=== PATIENT | male | born 1965 | race Caucasian/White ===

== ENCOUNTER 2023-01-01 08:40 | Outpatient (OUT) | payer OTHER, SELFPAY ==
--- NOTE | 2023-01-01 08:53 | ECG_ITS ---
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
--- NOTE | 2023-01-01 09:27 | P.GSHP_ITS ---
History of Present Illness History of Present Illness Chief complaint: Right Hallux Rigidus Narrative: Patient presents for preadmission testing. The patient states he has a long history of bilateral foot pain, right greater than left. The patient states he walks on concrete for long hours at work. He states most of his pain is in the area of his great toe. He states the pain is worse after standing for long periods of time and better with rest. He has tried insoles and meloxicam with no relief of his symptoms. He denies numbness, tingling, weakness, or any other complaints. Review of Systems ROS Narrative REVIEW OF SYSTEMS: Negative except as stated in HPI, ten or more systems reviewed. Constitutional: No fever , chills, weakness ENT: No sore throat or epistaxis Cardiovascular: No edema, chest pain, palpitations, or activity intolerance Respiratory: No shortness of breath, cough, or wheezing Gastrointestinal: No abdominal pain, constipation, diarrhea, or vomiting Genitourinary: No dysuria or hematuria Neurological: No numbness, tingling, weakness, or headache Psychiatric: No mood changes [facility] Medical History (Updated 01/01/23 @ 09:18 by Kristen Christopher NP) Surgical History (Updated 01/01/23 @ 09:18 by Kristen Christopher NP) Family History (Updated 01/01/23 @ 09:18 by Kristen Christopher NP) Other Family history of hypertension Family history of uterine cancer Social History (Updated 01/01/23 @ 09:06 by Kristen Christopher NP) Within the past year, how often did you have a drink containing alcohol: never Score interpretation: A score less than 4 is consistent with normal alcohol consumption. 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 Highest level of school completed/degree received: high school graduate Meds Home Medications and Allergies Home Medications Medication Instructions Recorded Confirmed Type simvastatin 40 mg tablet 40 mg PO QDAY 01/01/23 01/01/23 History Allergies Allergy/AdvReac Type Severity Reaction Status Date / Time No Known Drug Allergies Allergy Verified 01/01/23 09:05 Exam Narrative Exam Narrative: Constitutional: Awake, alert, comfortable, well-appearing, nontoxic, interactive, vital signs as charted Head: Normocephalic, atraumatic Neck: Supple, normal appearance, normal range of motion, no meningeal signs, no lymphadenopathy Respiratory: No respiratory distress, breath sounds clear Cardiovascular: Regular rate and rhythm, strong and regular heart tones Musculoskeletal: Right foot: Pain with palpation over the right 1st MPJ, deformity noted, limited range of motion, good capillary refill, sensation i ntact Skin: No rashes or induration, no lesions, only visible skin inspected Neuro: No neurological deficits, normal sensation Psychiatric: Oriented ?3, normal affect Assessment and Plan Assessment and Plan (1) Hallux rigidus: Plan Right 1st metatarsal phalangeal joint fusion with bone graft as needed scheduled with Dr. Bain 01/13/2023.
[2023-01-01 11:43] LABS: Anion Gap 13.1; BUN Creatinine Ratio 16.2; Calcium 8.6 mg/dL (8.5-10.1); Carbon Dioxide 28.2 mmol/L (21.0-32.0); Chloride 109 mmol/L (98-107); Estimated GFR (African America >60 (>=60); Estimated GFR (Non-African Ame >60 (>=60); Glucose 98 mg/dL (74-106); Potassium 4.3 mmol/L (3.5-5.1); Sodium 146 mmol/L (136-145)
== END 2023-01-01 08:41 | disposition home or self-care (01) ==
LOC: PST 08:42
PROVIDERS: PCP Family Medicine; Visit Provider Podiatrist Foot & Ankle Surgery
DX: Z01.810 Encounter for preprocedural cardiovascular examination (principal); Z01.812 Encounter for preprocedural laboratory examination; M20.21 Hallux rigidus, right foot; I10 Essential (primary) hypertension
CPT/HCPCS: 36415; 80048; 93005; G0463

== ENCOUNTER 2023-01-13 07:04 | Day surgery (SDC) | payer OTHER, SELFPAY ==
[2023-01-01 09:25] VITALS: BP 133/82; PULSE 79; RESP 18; TEMP 36.3; O2SAT 97; BMI 32.1
[2023-01-13] VITALS (11 sets, daily range): BP systolic 122–154; BP diastolic 77–93; PULSE 61–77; RESP 10–19; TEMP 36–36.1; O2SAT 95–97; BMI 31.9
--- NOTE | 2023-01-13 | XR_ITS ---
[address] [address] Patient Name: DARVIN LIEBERMAN MRN: [id number] date: 1965 Sex: M Assigned Patient Location: [facility] Current Patient Location: Accession/Order Number: [id number] Exam Date: 01/13/2023 08:48 Report Date: 01/13/2023 14:07 At the request of: KAMLA SORIANO Procedure: XR foot RT 2V XR foot RT 2V TECHNIQUE : Intraoperative fluoroscopy was performed without a radiologist present. HISTORY: FUSION Comparison: Bilateral foot x-rays 08/14/2022. FINDINGS: Fluoroscopy was performed without a radiologist present. Spot images demonstrate fusion across the first metatarsophalangeal joint. Cumulative dose: 1.55 mGy. Total fluoroscopic time: 81.9 seconds. XR/XR foot RT 2V IMPRESSION: Intraprocedural/intraoperative fluoroscopy was performed. Correlate with procedural note for additional information. Electronically authenticated by: ANDREW OSHEA Date: 01/13/2023 14:07
[2023-01-13 07:22] LABS: Basophils Percent Auto 0.5 % (0.2-2.0); Eosinophils Absolute Auto 0.3 10^3/uL (0.0-0.7); Eosinophils Percent Auto 4.2 % (0.9-7.0); Hematocrit 42.5 % (42.0-54.0); Hemoglobin 14.4 g/dL (14.0-18.0); Immature Granulocytes Abs Auto 0.01 10^3/uL (0.00-0.03); Immature Granulocytes Pct Auto 0.2 % (0.0-0.5); Lymphocytes Absolute Auto 1.7 10^3/uL (1.2-3.8); Lymphocytes Percent Auto 27.8 % (20.5-60.0); Mean Corpuscular HGB Conc 33.9 g/dL (29.9-35.2); Mean Corpuscular Volume 91.4 fL (80.0-94.0); Mean Platelet Volume 9.9 fL (9.5-13.5); Monocytes Absolute Auto 0.5 10^3/uL (0.3-0.8); Neutrophils Absolute Auto 3.7 10^3/uL (1.4-6.5); Neutrophils Percent Auto 59.3 % (43.0-75.0); Platelet Count 234 10^3/uL (150-450); Red Blood Count 4.65 10^6/uL (4.70-6.10); Red Cell Distribution Width 12.1 % (11.0-15.0); White Blood Count 6.2 10^3/uL (4.0-11.0)
[2023-01-13 07:26] LABS: Glucometer 101 mg/dL (74-106)
[2023-01-13] MEDS: LACTATED RINGER'S SOLUTION 1,000 ML 50 ML IV ×2 (07:45→10:50)
[2023-01-13] MEDS: CEFAZOLIN SODIUM/DEXTROSE,ISO 2 GM/50 ML PIGGYBACK IV (08:37)
[2023-01-13] MEDS: THROMBI-GEL SIZE 40 HEMOSTAT 1 EACH TOPICAL (09:41)
[2023-01-13 11:18] LABS: Glucometer 92 mg/dL (74-106)
--- NOTE | 2023-01-13 11:45 | XR_ITS ---
The [address] [address] Patient Name: DARVIN LIEBERMAN MRN: [id number] date: 1965 Sex: M Assigned Patient Location: [email or web address] Current Patient Location: [facility] [[email or web address]] Accession/Order Number: [id number] Exam Date: 01/13/2023 11:35 Report Date: 01/13/2023 14:44 At the request of: RAHAT LEIJA Procedure: XR foot RT min 3V STUDY: XR foot RT min 3V, [id number] HISTORY: postop xr pacu COMPARISON: Bilateral foot x-rays 08/14/2022 FINDINGS: Status post right first metatarsophalangeal joint fusion. The fusion hardware is intact. Alignment across the first MTP joint is near anatomic. No acute fracture or dislocation. There are expected postsurgical changes to the soft tissues surrounding the first MTP joint. Calcification at the Achilles insertion. XR/XR foot RT min 3V IMPRESSION: Expected appearance from the right first metatarsophalangeal joint fusion. Electronically authenticated by: ANDREW OSHEA Date: 01/13/2023 14:44
--- NOTE | 2023-01-13 13:17 | P.ORON_ITS ---
Brief Operative Note Date of procedure: 01/13/23 Pre-op diagnosis: right hallux rigidus Post-op diagnosis: same as pre-op Procedure: PROCEDURE(S) PERFORMED: 1. First metatarsal phalangeal joint fusion 2. [place] of distal tibial bone graft 3. Application of short leg splint 4. Intraoperative fluoroscopy examination *All procedures were performed on the RIGHT foot INTRAOPERATIVE FINDINGS: PROCEDURE IN DETAIL: Patient was identified in pre op and consent was reviewed. Correct side and site were identified and marked. Pre-op antibiotics were started. Patient was brought to OR suite and place on table in a supine position. General anesthesia was administered. A tourniquet was applied. Operative extremity was prepped and draped in usual sterile fashion. Formal time-out was performed and the foot/ankle were exsanguinated and tourniquet inflated. Incision created over dorsal aspect of the 1st MPJ. Bleeders coagulated. EHL protected throughout the procedure. Capsulotomy performed and McGlammry elevator inserted into 1st MPJ. Guide Pin place in 1st metatarsal head. Conical reamers used on 1st metatarsal head to remove cartilage and subchondral bone. Guide pin removed. Conical reamers used on proximal phalanx in a similar manner. 2.0 mm drill used to on each side of the joint. The site was irrigated. Distal Tibial Bone Graft: A 2 cm incision was created 2 cm proximal to the ankle joint and just medial to the tibialis anterior tendon. Combination sharp blunt dissection gained access to the distal tibial metaphysis and the periosteum was reflected carefully. An 8 mm bone harvester was drilled into the distal tibial metaphysis and 3 cc of cancellus autograft was obtained. Gelfoam was then packed into the harvest site and deep closure with absorbable suture was performed followed by closure with skin suture. Bone graft was then packed into the fusion site. A stab incision was placed on the medial aspect of the hallux and blunt dissection down to the proximal phalanx base was performed. A guide wire was then used to pin the MPJ in a rect us position under fluoroscopic guidance. Position was checked both on the table and under fluoroscopy. A saw was used to contour the dorsal aspect of the 1st metatarsal and proximal phalanx to accommodate plate fixation. A 3.[address] was [address] over the fusion site and temporarily fixed. Then towboat pilot holes were drilled for locking 3.5 mm screws which were measured and placed according to the manufactor's standard directions. Again position was checked under fluoroscopy as well as on the table. Temporary fixation was removed and additional screws were placed. A 3.5 mm cannulated headed screw was inserted over the previously placed guide wire accordingly. Again position of the great toe and hardware placement were checked on the table and under fluoroscopy. The surgical site was irrigated with copious amounts of sterile saline. The incision was then closed in layers. The tourniquet was deflated and a prompt hyperemic response was noted. A dry sterile dressing consisting of Xeroform on the incisions followed by 4 x 4 gauze, ABDs, and Kerlix were applied. Multiple layers of cast padding were then applied to ensure all bony prominences were well-padded. A plaster posterior splint was then applied which was held in place by Tacos wraps. Capillary refill time to all digits was evaluated and had appropriate response. 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 He attempted OTC anti-inflammatories and Tylenol, shoe modification and topical pain relievers without help. He presents my office medial discussed the risks and benefits associated with surgical and nonsurgical treatment options. Given the patient's daily pain and dysfunction he wished to proceed with surgical intervention I recommended right 1st metatarsal phalangeal joint fusion. All risks and benefits were discussed and all questions answered to satisfaction.
== END 2023-01-13 12:25 | disposition home or self-care (01) ==
PROVIDERS: Anesthesiology; PCP Family Medicine; Visit Provider Podiatrist Foot & Ankle Surgery
PROC: (CPT 20900; principal; 2023-01-13 08:20)
DX: M20.21 Hallux rigidus, right foot (principal); I10 Essential (primary) hypertension; Z87.891 Personal history of nicotine dependence; E78.00 Pure hypercholesterolemia, unspecified
CPT/HCPCS: 20900; 28750; 36415; 64445; 73620; 73630; 76000; 76942; 82948; 85025; C1713; J2704

== ENCOUNTER 2023-02-04 10:34 | Outpatient (OUT) | payer OTHER, SELFPAY ==
--- NOTE | 2023-02-04 | XR_ITS ---
The [address] [address] Patient Name: DARVIN LIEBERMAN MRN: [id number] date: 1965 Sex: M Assigned Patient Location: [facility] Current Patient Location: [facility] Accession/Order Number: [id number] Exam Date: 02/04/2023 10:48 Report Date: 02/04/2023 15:28 At the request of: SENA CABRERA Procedure: XR foot RT min 3V EXAM: XR foot RT min 3V HISTORY: RIGHT FOOT PAIN COMPARISON: 01/13/2023 TECHNIQUE: 3 views of the right foot were obtained. FINDINGS: The posterior mold has been removed. Postsurgical changes are again seen at the first metatarsophalangeal joint, with a dorsal plate, as well as multiple screws. The joint space remains visible. Soft tissue swelling is noted at the surgical site. There is no evidence of an acute fracture or dislocation. The joint space otherwise intact. An osteophyte arises from the insertion site of the Achilles tendon. XR/XR foot RT min 3V IMPRESSION: Postsurgical changes are noted at the first metatarsophalangeal joint, accompanied by hardware, as described. A small amount of osseous healing is present and the joint space remains visible. Soft tissue swelling is also noted at the site of surgery. There is no acute fracture or dislocation. Electronically authenticated by: KAMLA VALVERDE Date: 02/04/2023 15:28
== END 2023-02-04 10:35 | disposition home or self-care (01) ==
LOC: RAD 10:34
PROVIDERS: PCP Family Medicine; Visit Provider Physician Assistant
DX: M20.21 Hallux rigidus, right foot (principal)
CPT/HCPCS: 73630

== ENCOUNTER 2023-02-20 10:37 | Outpatient (OUT) | payer OTHER, SELFPAY ==
--- NOTE | 2023-02-20 | XR_ITS ---
The [address] [address] Patient Name: DARVIN LIEBERMAN MRN: [id number] date: 1965 Sex: M Assigned Patient Location: [facility] Current Patient Location: Accession/Order Number: [id number] Exam Date: 02/20/2023 10:45 Report Date: 02/21/2023 09:27 At the request of: SENA CABRERA Procedure: XR foot RT min 3V PROCEDURE: XR foot RT min 3V COMPARISON: None. HISTORY: RIGHT FOOT PAIN FINDINGS: BONES:Stable fusion the first metatarsal-phalangeal joint using a dorsal plate and multiple screws. No acute fracture, dislocation or mechanical failure. Enthesopathic spurring Achilles insertion of the calcaneus SOFT TISSUES:Negative. No visible soft tissue swelling. EFFUSION:None visible. OTHER: Negative. XR/XR foot RT min 3V IMPRESSION: Stable fusion first metatarsal-phalangeal joint Electronically authenticated by: NINA ALCANTARA Date: 02/21/2023 09:27
== END 2023-02-20 10:38 | disposition home or self-care (01) ==
LOC: RAD 10:37
PROVIDERS: PCP Family Medicine; Visit Provider Physician Assistant
DX: M79.671 Pain in right foot (principal); Z98.1 Arthrodesis status
CPT/HCPCS: 73630

== ENCOUNTER 2023-03-03 08:43 | Outpatient (OUT) | payer OTHER, SELFPAY ==
[2023-03-03 06:48] LABS: Basophils Percent Auto 0.6 % (0.2-2.0); Eosinophils Absolute Auto 0.3 10^3/uL (0.0-0.7); Eosinophils Percent Auto 4.9 % (0.9-7.0); Hematocrit 43.7 % (42.0-54.0); Hemoglobin 14.3 g/dL (14.0-18.0); Immature Granulocytes Abs Auto 0.01 10^3/uL (0.00-0.03); Immature Granulocytes Pct Auto 0.2 % (0.0-0.5); Lymphocytes Absolute Auto 1.5 10^3/uL (1.2-3.8); Lymphocytes Percent Auto 23.5 % (20.5-60.0); Mean Corpuscular HGB Conc 32.7 g/dL (29.9-35.2); Mean Corpuscular Hemoglobin 30.4 pg (25.9-34.0); Mean Corpuscular Volume 92.8 fL (80.0-94.0); Mean Platelet Volume 9.6 fL (9.5-13.5); Monocytes Absolute Auto 0.5 10^3/uL (0.3-0.8); Monocytes Percent Auto 7.7 % (1.7-12.0); Neutrophils Percent Auto 63.1 % (43.0-75.0); Platelet Count 240 10^3/uL (150-450); Red Blood Count 4.71 10^6/uL (4.70-6.10); Red Cell Distribution Width 12.4 % (11.0-15.0); White Blood Count 6.3 10^3/uL (4.0-11.0)
[2023-03-03 07:32] LABS: Estimated Average Glucose 108 mg/dL; Glycohemoglobin A1C 5.4 % (4.5-6.2)
[2023-03-03 07:50] LABS: Alanine Aminotransferase 45 U/L (16-63); Albumin Globulin Ratio 1.3; Albumin Level 3.8 g/dL (3.4-5.0); Alkaline Phosphatase 113 U/L (46-116); Anion Gap 13.1; Aspartate Amino Transferase 17 U/L (15-37); BUN Creatinine Ratio 14.1; Bilirubin Total 0.4 mg/dL (0.2-1.0); Calcium 8.6 mg/dL (8.5-10.1); Carbon Dioxide 30.8 mmol/L (21.0-32.0); Chloride 105 mmol/L (98-107); Chol HDL Ratio 3.7; Cholesterol 191 mg/dL (<=200); Estimated GFR (African America >60 (>=60); Estimated GFR (Non-African Ame >60 (>=60); Free T3 3.16 pg/mL (2.18-3.98); Globulin 2.9 g/dL; Glucose 92 mg/dL (74-106); HDL Cholesterol 51 mg/dL (40-60); Potassium 3.9 mmol/L (3.5-5.1); Sodium 145 mmol/L (136-145); Thyroid Stimulating Hormone 6.866 uIU/mL (0.358-3.740); Total Protein 6.7 g/dL (6.4-8.2); Triglycerides 125 mg/dL (<=150)
[2023-03-03 08:02] LABS: Prostate Specific Antigen Scrn 0.87 ng/mL (<=4.00)
[2023-03-04 11:09] LABS: Insulin 9.3 uIU/mL (2.6-24.9)
== END 2023-03-03 08:44 | disposition home or self-care (01) ==
LOC: LAB 03-04 08:43
PROVIDERS: PCP Family Medicine; Visit Provider Family Medicine
DX: Z00.00 Encounter for general adult medical examination without abnormal findings (principal)
CPT/HCPCS: 36415; 80053; 80061; 83036; 83525; 84436; 84443; 84481; 85025; G0103

== ENCOUNTER 2023-04-02 06:33 | Outpatient (OUT) | payer OTHER, SELFPAY ==
[2023-04-02 09:09] LABS: Free T4 0.66 ng/dL (0.76-1.46)
[2023-04-02 09:11] LABS: Thyroid Stimulating Hormone 8.104 uIU/mL (0.358-3.740)
== END 2023-04-02 06:34 | disposition home or self-care (01) ==
LOC: LAB 06:33
PROVIDERS: PCP Family Medicine; Visit Provider Family Medicine
DX: R94.6 Abnormal results of thyroid function studies (principal)
CPT/HCPCS: 36415; 84439; 84443

== ENCOUNTER 2023-04-03 10:41 | Outpatient (OUT) | payer OTHER, SELFPAY ==
--- NOTE | 2023-04-03 | XR_ITS ---
[place] [id number] Patient Name: DARVIN LIEBERMAN MRN: [id number] date: 1965 Sex: M Assigned Patient Location: [facility] Current Patient Location: Accession/Order Number: [id number] Exam Date: 04/03/2023 10:45 Report Date: 04/04/2023 09:06 At the request of: SENA CABRERA Procedure: XR foot RT min 3V PROCEDURE: XR foot RT min 3V COMPARISON: 02/20/2023 HISTORY: LEFT FOOT PAIN FINDINGS: BONES:No acute fracture or dislocation. Fusion the first metatarsal-phalangeal joint with a plate and multiple screws. No mechanical failure. Partial bony bridging of the joint. Enthesopathic spurring of the calcaneus. SOFT TISSUES:Soft tissue swelling medial forefoot EFFUSION:None visible. OTHER: Negative. XR/XR foot RT min 3V IMPRESSION: Stable first metatarsal-phalangeal joint fusion with no mechanical failure Electronically authenticated by: NINA ALCANTARA Date: 04/04/2023 09:06
== END 2023-04-03 10:42 | disposition home or self-care (01) ==
LOC: RAD 10:41
PROVIDERS: PCP Family Medicine; Visit Provider Physician Assistant
DX: M20.21 Hallux rigidus, right foot (principal)
CPT/HCPCS: 73630

== ENCOUNTER 2023-05-03 06:30 | Outpatient (OUT) | payer OTHER, SELFPAY ==
--- OUTSIDE RECORDS SUMMARY | 2023-05-03 06:31 | XMS_ITS | CCD ---
Author Name Unknown Address [address] [facility] [address] [place] [address] Organization [facility] Care Team Providers Care Educational Sign Language Interpreter Name Role Phone KALEIGH ., DR HICKMAN Primary Care Unavailable KAMLA SORIANO Attending Unavailable PRINCEANDER, KAMLA Wilburn Consulting Unavailable KAMLA SORIANO Admitting Unavailable ELIAS AGUIRRE Consulting Unavailable HOY ., DR HICKMAN Admitting Unavailable HOY ., DR HICKMAN Attending Unavailable HOY ., DR HICKMAN Consulting Unavailable HOY ., DR HICKMAN Primary Care Unavailable HOY ., DR HICKMAN Admitting Unavailable HOY ., DR HICKMAN Attending Unavailable HOY ., DR HICKMAN Consulting Unavailable HOY ., DR HICKMAN Primary Care Unavailable HOY ., DR HICKMAN Admitting Unavailable HOY ., DR HICKMAN Attending Unavailable HOY ., DR HICKMAN Primary Care Unavailable Problems Active Problems Problem Classification Problem Date Documented Date Episodic/Chronic Disorders of lipid metabolism (1 source) Pure hypercholesterolemia, unspecified; Translations: [PURE HYPERCHOLESTEROLEMIA UNSPEC] Onset: 2 Chronic Other connective tissue disease (4 sources) Pain in right foot; Translations: [PAIN IN RIGHT FOOT] Onset: 3 Episodic Other connective tissue disease (1 source) Pain in left foot; Translations: [PAIN IN LEFT FOOT] Onset: 3 Episodic Past or Other Problems Problem Classification Problem Date Documented Da te Episodic/Chronic Malaise and fatigue (1 source) Other fatigue; Translations: [OTHER FATIGUE] Onset: 03-23-2022 Episodic Other screening for suspected conditions (not mental disorders or infectious disease) (6 sources) Encounter for screening for malignant neoplasm of colon; Translations: [Encounter for screening for malignant neoplasm of prostate] Onset: 03-21-2022 Episodic Results Test Name Value Interpretation Reference Range Facility OCC BLD IMMUNO SCREENon 12-0 OCCULT BLOOD Negative Normal NEGATIVE [facility] Comment on above: Performed By: #### O BSCRN #### [facility] [address] [address] [address] Salud Abraham CBC AUTO DIFFon 03-18-2022 BASO # 0.1 103/ul Normal 0.0-0.1 [facility] Comment on above: Performed By: #### C BC #### [facility] [address] [place] [address] Dr. Salud Abraham Basophils/100 WBC (Bld) 0.8 % Normal 0.2-2.0 [facility] Comment on above: Performed By: #### C BC #### [facility] [address] [place] [address] Dr. Salud Abraham EO # 0.2 103/ul Normal 0.0-0.7 [facility] Comment on above: Performed By: #### C BC #### [facility] [address] [place] [address] Dr. Salud Abraham Eosinophils/100 WBC (Bld) 3.8 % Normal 0.9-7.0 [facility] Comment on above: Performed By: #### C BC #### [facility] [address] [place] [address] Dr. Salud Abraham Erythrocyte distribution width (RBC) [Ratio] 12.7 % Normal 11.0-15.0 [facility] Comment on above: Performed By: #### C BC #### [facility] [address] [place] [address] Dr. Salud Abraham Hematocrit (Bld) [Volume fraction] 44.8 % Normal 42.0-54.0 [facility] Comment on above: Performed By: #### C BC #### [facility] [address] [place] [address] Dr. Salud Abraham Hemoglobin (Bld) [Mass/Vol] 14.9 g/dL Normal 14.0-18.0 [facility] Comment on above: Performed By: #### C BC #### [facility] [address] [place] [address] Dr. Salud Abraham IG # 0.02 10e3/ul Normal 0.00-0.03 [facility] Comment on above: Performed By: #### C BC #### [facility] [address] [place] [address] Dr. Salud Abraham IG % 0.3 % Normal 0.0-0.5 [facility] Comment on above: Performed By: #### C BC #### [facility] [address] [place] [address] Dr. Salud Abraham LYMPH # 1.5 103/ul Normal 1.2-3.8 [facility] Comment on above: Performed By: #### C BC #### [facility] [address] [place] [address] Dr. Salud Abraham Lymphocytes/100 WBC (Bld) 24.0 % Normal 20.5-60.0 [facility] Comment on above: Performed By: #### C BC #### [facility] [address] [place] [address] Dr. Salud Abraham MANUAL DIFF REQ NO Normal [facility] Comment on above: Performed By: #### C BC #### [facility] [address] [place] [address] Dr. Salud Abraham MCH (RBC) [Entitic mass] 29.9 pg Normal 25.9-34.0 [facility] Comment on above: Performed By: #### C BC #### [facility] [address] [place] [address] Dr. Salud Abraham MCHC (RBC) [Mass/Vol] 33.3 g/dL Normal 29.9-35.2 [facility] Comment on above: Performed By: #### C BC #### [facility] [address] [place] [address] Dr. Salud Abraham MCV (RBC) [Entitic vol] 90.0 fL Normal 80.0-94.0 [facility] Comment on above: Performed By: #### C BC #### [facility] [address] [place] [address] Dr. Salud Abraham MONO # 0.5 103/ul Normal 0.3-0.8 [facility] Comment on above: Performed By: #### C BC #### [facility] [address] [place] [address] Dr. Salud Abraham Monocytes/100 WBC (Bld) 8.9 % Normal 1.7-12.0 [facility] Comment on above: Performed By: #### C BC #### [facility] [address] [place] [address] Dr. Salud Abraham NEUT # 3.8 103/ul Normal 1.4-6.5 [facility] Comment on above: Performed By: #### C BC #### [facility] [address] [place] [address] Dr. Salud Abraham Neutrophils/100 WBC (Bld) 62.2 % Normal 43.0-75.0 [facility] Comment on above: Performed By: #### C BC #### [facility] [address] [place] [address] Dr. Salud Abraham Platelet mean volume (Bld) [Entitic vol] 10.6 fL Normal 9.5-13.5 [facility] Comment on above: Performed By: #### C BC #### [facility] [address] [place] [address] Dr. Salud Abraham PLT 196 103/ul Normal 150-450 [facility] Comment on above: Performed By: #### C BC #### [facility] [address] [place] [address] Dr. Salud Abraham RBC 4.98 106/ul Normal 4.70-6.10 [facility] Comment on above: Performed By: #### C BC #### [facility] [address] [place] [address] Dr. Salud Abraham WBC 6.1 103/ul Normal 4.0-11.0 [facility] Comment on above: Performed By: #### C BC #### [facility] [address] [place] [address] Dr. Salud Abraham FREE T3on 03-18-2022 FREE T3 2.91 pg/mlL Normal 2.18-3.98 [facility] Comment on above: Performed By: #### T SH, CMP, T4, FT3, LIPID #### [facility] [address] [address] [address] Salud Abraham GLYCOHEMOGLOBIN A1Con 2021 ADA RECOMMENDATION SEE BELOW Normal [facility] Comment on above: Result Comment: ADA RECOMMENDED LIMIT 4.0 - 6.0 ADA THERAPEUTIC TARGET < 7.0 ACTION SUGGESTED > 7.0 Performed By: #### A 1C #### [facility] [address] [address] [address] Salud Abraham Glucose [Mass/Vol] 111 mg/dL Normal [facility] Comment on above: Performed By: #### A 1C #### [facility] [address] [address] [address] Salud Abraham HbA1c (Bld) [Mass fraction] 5.5 % Normal 4.5-6.2 [facility] Comment on above: Performed By: #### A 1C #### [facility] [address] [place] [address] Dr. Salud Abraham LIPID PROFILEon 03-18-2022 CHOL-HDL RATIO NORM SEE BELOW Normal [facility] Comment on above: Result Comment: 3.3 - 4.4 LOW RISK 4.4 - 7.1 AVERAGE RISK 7.1 - 11.0 MODERATE RISK >11.0 HIGH RISK Performed By: #### T SH, CMP, T4, FT3, LIPID #### [facility] [address] [address] [address] Salud Abraham Cholesterol [Mass/Vol] 169 mg/dL Normal <=200 [facility] Comment on above: Performed By: #### T SH, CMP, T4, FT3, LIPID #### [facility] [address] [address] [address] Salud Abraham Cholesterol in HDL [Mass/Vol] 57 mg/dL Normal 40-60 [facility] Comment on above: Performed By: #### T SH, CMP, T4, FT3, LIPID #### [facility] [address] [address] [address] Salud Abraham Cholesterol in LDL [Mass/Vol] 92.2 mg/dL Normal [facility] Comment on above: Performed By: #### T SH, CMP, T4, FT3, LIPID #### [facility] [address] [address] [address] Salud Abraham Cholesterol.total/Ch olesterol in HDL [Mass ratio] 3.0 {ratio} Normal [facility] Comment on above: Performed By: #### T SH, CMP, T4, FT3, LIPID #### [facility] [address] [address] [address] Salud Abraham HDL NORMAL > or = 60 mg/dl - LO W CARDIOVASCULAR RISK <40 mg/dl - HIGH CARDIOVASCULAR RISK Normal [facility] Comment on above: Performed By: #### T SH, CMP, T4, FT3, LIPID #### [facility] [address] [address] [address] Salud Abraham LDL CALC NORMAL SEE BELOW Normal [facility] Comment on above: Result Comment: <100 mg/dl OPTIMAL 100 - 129 mg/dl NEAR OR ABOVE OPTIMAL 130 - 159 mg/dl BORDERLINE HIGH 160 - 189 mg/dl HIGH >190 mg/dl VERY HIGH Performed By: #### T SH, CMP, T4, FT3, LIPID #### [facility] [address] [address] [address] Salud Abraham Triglyceride [Mass/Vol] 99 mg/dL Normal <=150 [facility] Comment on above: Performed By: #### T SH, CMP, T4, FT3, LIPID #### [facility] [address] [address] [address] Salud Abraham VLDL CALC 19.8 mg/dL Normal [facility] Comment on above: Performed By: #### T SH, CMP, T4, FT3, LIPID #### [facility] [address] [address] [address] Salud Abraham PROF 14(COMP METB)on 022 Albumin [Mass/Vol] 3.8 g/dL Normal 3.4-5.0 [facility] Comment on above: Performed By: #### T SH, CMP, T4, FT3, LIPID #### [facility] [address] [address] [address] Salud Abraham Albumin/Globulin [Mass ratio] 1.4 {ratio} Normal [facility] Comment on above: Performed By: #### T SH, CMP, T4, FT3, LIPID #### [facility] [address] [address] [address] Salud Abraham ALP [Catalytic activity/Vol] 98 U/L Normal 46-116 [facility] Comment on above: Performed By: #### T SH, CMP, T4, FT3, LIPID #### [facility] [address] [address] [address] Salud Abraham ALT [Catalytic activity/Vol] 36 U/L Normal 16-63 [facility] Comment on above: Performed By: #### T SH, CMP, T4, FT3, LIPID #### [facility] [address] [place] [address] Dr. Salud Abraham Anion gap [Moles/Vol] 9.9 mmol/L Normal [facility] Comment on above: Performed By: #### T SH, CMP, T4, FT3, LIPID #### [facility] [address] [place] [address] Dr. Salud Abraham AST [Catalytic activity/Vol] 19 U/L Normal 15-37 [facility] Comment on above: Performed By: #### T SH, CMP, T4, FT3, LIPID #### [facility] [address] [place] [address] Dr. Salud Abraham Bilirubin [Mass/Vol] 0.2 mg/dL Normal 0.2-1.0 [facility] Comment on above: Performed By: #### T SH, CMP, T4, FT3, LIPID #### [facility] [address] [place] [address] Dr. Salud Abraham Calcium [Mass/Vol] 9.1 mg/dL Normal 8.5-10.1 [facility] Comment on above: Performed By: #### T SH, CMP, T4, FT3, LIPID #### [facility] [address] [place] [address] Dr. Salud Abraham Chloride [Moles/Vol] 108 mmol/L Critically high 98-107 [facility] Comment on above: Performed By: #### T SH, CMP, T4, FT3, LIPID #### [facility] [address] [place] [address] Dr. Salud Abraham CO2 [Moles/Vol] 31.0 mmol/L Normal 21.0-32.0 [facility] Comment on above: Performed By: #### T SH, CMP, T4, FT3, LIPID #### [facility] [address] [place] [address] Dr. Salud Abraham Creatinine [Mass/Vol] 0.90 mg/dL Normal 0.70-1.30 [facility] Comment on above: Performed By: #### T SH, CMP, T4, FT3, LIPID #### [facility] [address] [place] [address] Dr. Salud Abraham EGFR-AF ANGUILLAN >60 Normal >=60 [facility] Comment on above: Performed By: #### T SH, CMP, T4, FT3, LIPID #### [facility] [address] [place] [address] Dr. Salud Abraham EGFR-NON AF ANGUILLAN >60 Normal >=60 [facility] Comment on above: Performed By: #### T SH, CMP, T4, FT3, LIPID #### [facility] [address] [place] [address] Dr. Salud Abraham Globulin (S) [Mass/Vol] 2.8 g/dL Normal [facility] Comment on above: Performed By: #### T SH, CMP, T4, FT3, LIPID #### [facility] [address] [place] [address] Dr. Salud Abraham Glucose [Mass/Vol] 99 mg/dL Normal 74-106 [facility] Comment on above: Performed By: #### T SH, CMP, T4, FT3, LIPID #### [facility] [address] [place] [address] Dr. Salud Abraham Potassium [Moles/Vol] 4.9 mmol/L Normal 3.5-5.1 [facility] Comment on above: Performed By: #### T SH, CMP, T4, FT3, LIPID #### [facility] [address] [place] [address] Dr. Salud Abraham Protein [Mass/Vol] 6.6 g/dL Normal 6.4-8.2 [facility] Comment on above: Performed By: #### T SH, CMP, T4, FT3, LIPID #### [facility] [address] [place] [address] Dr. Salud Abraham Sodium [Moles/Vol] 144 mmol/L Normal 136-145 [facility] Comment on above: Performed By: #### T SH, CMP, T4, FT3, LIPID #### [facility] [address] [place] [address] Dr. Salud Abraham Urea nitrogen [Mass/Vol] 14.0 mg/dL Normal 7.0-18.0 [facility] Comment on above: Performed By: #### T SH, CMP, T4, FT3, LIPID #### [facility] [address] [place] [address] Dr. Salud Abraham Urea nitrogen/Creatinine [Mass ratio] 15.6 mg/mg Normal [facility] Comment on above: Performed By: #### T SH, CMP, T4, FT3, LIPID #### [facility] [address] [place] [address] Dr. Salud Abraham T4on 03-18-2022 T4 [Mass/Vol] 5.50 ug/dL Normal 4.50-12.10 [facility] Comment on above: Performed By: #### T SH, CMP, T4, FT3, LIPID #### [facility] [address] [place] [address] Dr. Salud Abraham TSHon 03-18-2022 TSH 5.089 uIU/mL Critically high 0.358-3.740 [facility] Comment on above: Performed By: #### T SH, CMP, T4, FT3, LIPID #### [facility] [address] [place] [address] Dr. Salud Abraham Reminderson 03-26-2021 Reminders - From: Alana Renae LPN To: N - Clinical; Sent: 03/26/2021 08:12:14 EST Show up: 02/04/2026 08:00:00 EDT Subject: colonoscopy recall Due Date/Time: 03/07/2026 08:00:00 EST Reminder/Recall Patient is due for colonoscopy 03/07/2026 due to history of tubular adenoma. Normal [facility] Ambulatory Clinical Summaryo n 03-23-2021 Ambulatory Clinical Summary {[id number] }CD:[id number] Normal [facility] General Surgery Office/Clini c Noteon 03-23-2021 General Surgery Office/Clinic Note Chief Complaint post operative follow up HPI Staff 16 day post operative follow up post colonoscopy with transverse polypectomy. History of Present Illness s/p colonoscopy due to positive Cologuard, small tubular adenoma removed from transverse colon; doing well, denies abd pain or blood in stools. Review of Systems ROS - Provider Constitutional: no fever, no sweats, no weight loss. Eyes: no glasses, no blurred vision, no visual loss. ENMT: no dentures, no hoarseness, no swallowing difficulties, no hearing loss, no ear infection(s), no nose bleeds. Cardiovascular: normal blood pressure, no chest pain, regular heartbeat, no heart murmur. Respiratory: no shortness of breath, no cough, no asthma, no wheezing. Gastrointestinal: no nausea, no vomiting, no diarrhea, no constipation, no blood in stool, no change in bowel habits, no abdominal pain, no hepatitis. Genitourinary: no kidney stones, no urine infection, no dysuria. Musculoskeletal: no pain, no weakness. Skin: no changing moles, no rash, no skin lumps. Neurologic: no seizures, no epilepsy, no headache. Psychiatric: no emotional or psychiatric problem. Heme/Lymph: no bleeding problems, no anemia, no blood clots, no transfusions. Allergy/Immunologic: no swollen lymph nodes/glands, no IV drug abuse. Other: Additional ROS info: Except as noted in the above Review of Systems and in the History of Present Illness, all other systems have been reviewed and are negative or noncontributory. Physical Exam Vitals & Measurements T: 36.5 ?C(Temporal Artery) Assessment/Plan 1. 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 Follow-up No qualifying data available Problem List/Past Medical History Ongoing BMI 31.0-31.9,adult GERD (gastroesophageal reflux disease) Impotence Positive colorectal cancer screening using Cologuard test Pure hypercholesterolemia Tubular adenoma of colon Historical No qualifying data Procedure/Surgical History Colonoscopy (03/07/2021), Appendectomy. Medications etodolac 500 mg Tab, 500 mg= 1 tab(s), Oral, Daily Fish Oil 1000 mg oral capsule, 1000 mg= 1 cap(s), Oral, Daily Protonix 40 mg Tab-DR, 40 mg= 1 tab(s), Oral, Daily simvastatin 40 mg Tab, 40 mg= 1 tab(s), Oral, Once a day (at bedtime) Skelaxin 800 mg Tab, 800 mg= 1 tab(s), Oral, TID Allergies No Known Allergies No Known Medication Allergies Social History Alcohol - Denies Alcohol Use, 02/13/2021 Substance Abuse - Denies Substance Abuse, 02/13/2021 Tobacco Former smoker, quit more than 30 days ago Tobacco Use:. Never Smokeless Tobacco Use:. Cigarettes, 1 per day. Started age 13.0 Years. Stopped age 47 Years., 02/13/2021 Family History Primary malignant neoplasm of female genital organ: Mother. Normal [facility] Comment on above: Result Comment: Elec tronically Signed By: LYNDA HASSAN, Carlos Rivera\Date and Time Signed: 03/23/21 15:53 EST Pathology Noteon 03-12-2021 Pathology Note [id number] :127 Normal [facility] Outside Colonoscopyon 2020 Outside Colonoscopy [id number] 1051 [id number]: 127 Normal [facility] [place] [place] [facility] [place] February 20, 2021 Vick Farris, [facility] [place] [address] Re: DARVIN LIEBERMAN Date of : 1965 Thank you for your referral of Darvin Lieberman who was seen on consultation on February 13, 2021, for positive cologuard. A colonoscopy is planned for further evaluation. I have enclosed my consultation note for your review. I will be happy to follow Darvin. Sincerely, Carlos Cheney MD General Surgery [facility] Consent for Procedure/Surger yon 02-15-2021 Consent for Procedure/Surgery [id number]: 127 [facility] Ambulatory Clinical Summaryo n 02-13-2021 Ambulatory Clinical Summary {[id number] }[id number] [facility] Physician Referralon 021 Physician Referral [id number] [id number]: 127 [facility] Encounters Encounter Date Encounter Type Care Provider Facility Start: 08-14-2022 End: 08-15-[address] VICK FARRIS . Facility:[facility] Start: 04-25-[address] VICK FARRIS . Facili ty:[facility] Start: 03-23-2022 Encounter for genera l adult medical examination without abnormal findings DR VICK FARRIS . [facility] Start: 03-21-2022 End: 03-21-[address] VICK FARRIS . Facility:[facility] Start: 03-18-2022 End: 03-19-[address] VICK FARRIS . Facility:[facility] Start: 03-18-2022 End: 03-19-2022 Encounter for general adult medical examination without abnormal findings DR VICK FARRIS . Facility:[facility] Procedures Date Procedure Procedure Detail Performing Clinician Start: 03-18-[address] KINJAL FARRIS . Comment on above: Performed By: #### [facility] #### [facility] [address] [address] [address] Salud Abraham Payers Date Payer Category Payer Unknown [id number] [id number] [id number] 1965 Unknown [id number] 2.16.84 [id number] 1965 Unknown [id number] 2.16.84 [id number] 1965 Unknown [id number] 2.16.84 [id number] 1961 Self-pay 1961 Unknown [id number] Clinical Note 08-14-2022 Note Date & Type Note Facility 08-14-2022 Note PROCEDURE: XR FOOT B IL MIN 3 VIEWS DATE: 08/14/2022 12:51 PM CDT COMPARISONS: Right foot radiographs from 03/21/2020 CLINICAL INDICATION: Bilateral foot pain FINDINGS: Right foot: There is no evidence of fractures or other acute osseous abnormalities. There is moderate first metatarsal phalangeal degenerative change. These degenerative changes have progressed slightly since 03/21/2020. Left foot: There is no evidence of fractures or other acute osseous abnormalities. There is mild first metatarsal phalangeal degenerative change of the left foot. IMPRESSION: Bilateral foot radiographs show first metatarsal phalangeal degenerative changes bilaterally, right greater than left. No acute osseous abnormalities. Electronically authenticated by: ELIAS AGUIRRE Date: 2022-08-14 14:12 [facility] Clinical Note 02-13-2021 Note Date & Type Note Facility 02-13-2021 Note Chief Complaint consultation for positive Cologuard HPI Staff 55 year old male presents on consultation from Dr. Farris for positive Cologuard. Voices intermittent epigastric discomfort for which he takes Pantoprazole. Denies rectal pain or bleeding. Denies change in bowel habits, nausea or vomiting. No unexplained weight loss. No known family history of colon cancer. History of Present Illness 55 yo male referred for positive Cologuard, denies change in bms or blood in stools, no abdominal complaints; last colonoscopy over 10 years ago, done for rectal bleeding, reportedly wnl; abdominal operations significant for appendectomy; on Etodolac daily, no asa, no SBE prophylaxis; no fmhx of GI malignancy or IBD. no tobacco use; patient had COVID infection 3 weeks ago, mild, not hospitalized, no symptoms currently. Review of Systems PHQ Score Initial Depression Screen Score: 0 ROS - Provider Constitutional: no fever, no sweats, no weight loss. Eyes: no glasses, no blurred vision, no visual loss. ENMT: no dentures, no hoarseness, no swallowing difficulties, no hearing loss, no ear infection(s), no nose bleeds. Cardiovascular: normal blood pressure, no chest pain, regular heartbeat, no heart murmur. Respiratory: no shortness of breath, no cough, no asthma, no wheezing. Gastrointestinal: no nausea, no vomiting, no diarrhea, no constipation, no blood in stool, no change in bowel habits, no abdominal pain, no hepatitis. Genitourinary: no kidney stones, no urine infection, no dysuria. Musculoskeletal: no pain, no weakness. Skin: no changing moles, no rash, no skin lumps. Neurologic: no seizures, no epilepsy, no headache. Psychiatric: no emotional or psychiatric problem. Heme/Lymph: no bleeding problems, no anemia, no blood clots, no transfusions. Allergy/Immunologic: no swollen lymph nodes/glands, no IV drug abuse. Other: Additional ROS info: Except as noted in the above Review of Systems and in the History of Present Illness, all other systems have been reviewed and are negative or noncontributory. Physical Exam Vitals & Measurements T: 36.5 ?C (Temporal Artery) HR: 76(Peripheral) RR: 16 BP: 128/80 HT: 182.9 cm HT: 182.88 cm WT: 106.0 kg WT: 106 kg BMI: 31.69 HEENT: normal conjunctiva, sclera clear, no scleral icterus, EOM intact, PERRLA, oral mucosa moist without lesions. Neck: trachea midline, no mass, symmetric, no thyromegaly or nodules, no adenopathy Respiratory: lungs CTA, respirations non labored. Cardiovascular: regular rate and rhythm, no murmur, no pedal edema or varicosities. Gastrointestinal: obese, soft, non distended, no tenderness, no masses, no palpable hernias, diastasis recti yes, no hepatosplenomegaly; normal bs Lymphatic: no cervical adenopathy, Musculoskeletal: normal gait, digits and nails without infection, nodes, cyanosis, clubbing. Skin: no rashes, no lesions, no ulcers, no subcutaneous nodules, induration. Psychiatric/Neuro: oriented to time, place, person, judgement normal, affect appropriate for age, insight intact, no focal deficits. Tests: labs reviewed, review of old records completed, Discussed surgical options, risks, and possible complications with patient. Assessment/Plan 1. Positive colorectal cancer screening using Cologuard test (R19.5: Other fecal abnormalities) plan colonoscopy under anesthesia, informed consent obtained. 2. BMI 31.0-31.9,adult (Z68.31: Body mass index [BMI] 31.0-31.9, adult) recommend diet and exercise Follow-up No qualifying data available Problem List/Past Medical History Ongoing BMI 31.0-31.9,adult GERD (gastroesophageal reflux disease) Impotence Positive colorectal cancer screening using Cologuard test Pure hypercholesterolemia Historical No qualifying data Procedure/Surgical History Appendectomy. Medications etodolac 500 mg Tab, 500 mg= 1 tab(s), Oral, Daily Fish Oil 1000 mg oral capsule, 1000 mg= 1 cap(s), Oral, Daily Protonix 40 mg Tab-DR, 40 mg= 1 tab(s), Oral, Daily simvastatin 40 mg Tab, 40 mg= 1 tab(s), Oral, Once a day (at bedtime) Skelaxin 800 mg Tab, 800 mg= 1 tab(s), Oral, TID Allergies No Known Allergies No Known Medication Allergies Social History Alcohol - Denies Alcohol Use, 02/13/2021 Substance Abuse - Denies Substance Abuse, 02/13/2021 Tobacco Former smoker, quit more than 30 days ago Tobacco Use:. Never Smokeless Tobacco Use:. Cigarettes, 1 per day. Started age 11.0 Years. Stopped age 47 Years., 02/13/2021 Family History Primary malignant neoplasm of female genital organ: Mother. [facility] Comment on above: Result Comment: Elec tronically Signed By: LYNDA HASSAN, Carlos Rivera\Date and Time Signed: 02/13/21 15:48 EDT Summary Purpose Family History No Family History Records FoundNo Family History Records Found Advance Directives No Advanced Directives Records FoundNo Advanced Directives Records Found Additional Source Comments (unrecognized sect ion and content) No Status Records FoundNo Status Records Found INFORMATION SOURCE (unrecogn ized section and content) DATE CREATED AUTHOR 07/07/2021 [facility] DATE CREATED AUTHOR AUTHOR'S JESSICA ATJERMAINE 08/23/2022 [facility] FOR RECORDS PERTAINING TO PATIENTS WHO ARE OR HAVE BEEN ENROLLED IN A CHEMICAL DEPENDENCY/SUBSTANCEABUSE PROGRAM, SOME INFORMATION MAY BE OMITTED. This clinical summary was aggregated from multiple sources. Caution should be exercised in using it in the provision of clinical care. This summary normalizes information from multiple sources, and as a consequence, information in this document may materially change the coding, format and clinical context of patient data. In addition, data may be omitted in some cases. CLINICAL DECISIONS SHOULD BE BASED ON THE PRIMARY CLINICAL RECORDS. [facility]. provides no warranty or guarantee of the accuracy or completeness of information in this document.
== END 2023-05-03 06:31 | disposition home or self-care (01) ==
LOC: LAB 06:30
PROVIDERS: PCP Family Medicine; Visit Provider Family Medicine
DX: R79.89 Other specified abnormal findings of blood chemistry (principal)
CPT/HCPCS: 36415; 84439; 84443

== ENCOUNTER 2023-07-03 15:15 | Outpatient (OUT) | payer OTHER, SELFPAY ==
--- NOTE | 2023-07-03 | XR_ITS ---
The [address] [address] Patient Name: DARVIN LIEBERMAN MRN: [id number] date: 1965 Sex: M Assigned Patient Location: Current Patient Location: Accession/Order Number: [id number] Exam Date: 07/03/2023 15:16 Report Date: 07/05/2023 08:48 At the request of: SENA CABRERA Procedure: XR foot RT min 3V PROCEDURE: XR foot RT min 3V HISTORY: RIGHT FOOT PAIN COMPARISON: XR foot right 04/03/2023 FINDINGS: BONES:Mechanical fusion the first metatarsophalangeal joint via dorsal plate and screws. No hardware fracture or loosening. No bone fracture dislocation. Prior bone harvesting from distal tibia. Degenerative enthesopathic spurring at Achilles tendon insertion. SOFT TISSUES:No visible soft tissue swelling. EFFUSION:None visible. OTHER: Negative. XR/XR foot RT min 3V IMPRESSION: 1. Stable surgical changes without evidence of hardware failure or change in alignment. Electronically authenticated by: ISRA FRIEDMAN Date: 07/05/2023 08:48
--- OUTSIDE RECORDS SUMMARY | 2023-07-03 15:33 | XMS_ITS | CCD ---
Author Name Unknown Address [address] [place] [address] Organization [facility] Care Team Providers Care District [address] Judge Name Role Phone KALEIGH ., DR HICKMAN [...] SCREENon 12-0 OCCULT BLOOD Negative Normal NEGATIVE [facility] Comment on above: Performed By: #### O BSCRN #### [facility] [address] [address] [address] Salud Abraham CBC AUTO DIFFon 03-18-2022 BASO # 0.1 103/ul Normal 0.0-0.1 [facility] Comment on above: Performed By: #### C BC #### [facility] [address] [place] [address] Dr. Salud Abraham Basophils/100 WBC (Bld) 0.8 % Normal 0.2-2.0 [facility] Comment on above: Performed By: #### C BC #### [facility] [address] [place] [address] Dr. Salud Abraham EO # 0.2 103/ul Normal 0.0-0.7 [facility] Comment on above: Performed By: #### C BC #### [facility] [address] [place] [address] Dr. Salud Abraham Eosinophils/100 WBC (Bld) 3.8 % Normal 0.9-7.0 [facility] Comment on above: Performed By: #### C BC #### [facility] [address] [place] [address] Dr. Salud Abraham Erythrocyte distribution width (RBC) [Ratio] 12.7 % Normal 11.0-15.0 [facility] Comment on above: Performed By: #### C BC #### [facility] [address] [place] [address] Dr. Salud Abraham Hematocrit (Bld) [Volume fraction] 44.8 % Normal 42.0-54.0 [facility] Comment on above: Performed By: #### C BC #### [facility] [address] [place] [address] Dr. Salud Abraham Hemoglobin (Bld) [Mass/Vol] 14.9 g/dL Normal 14.0-18.0 [facility] Comment on above: Performed By: #### C BC #### [facility] [address] [place] [address] Dr. Salud Abraham IG # 0.02 10e3/ul Normal 0.00-0.03 [facility] Comment on above: Performed By: #### C BC #### [facility] [address] [place] [address] Dr. Salud Abraham IG % 0.3 % Normal 0.0-0.5 [facility] Comment on above: Performed By: #### C BC #### [facility] [address] [place] [address] Dr. Salud Abraham LYMPH # 1.5 103/ul Normal 1.2-3.8 [facility] Comment on above: Performed By: #### C BC #### [facility] [address] [place] [address] Dr. Salud Abraham Lymphocytes/100 WBC (Bld) 24.0 % Normal 20.5-60.0 [facility] Comment on above: Performed By: #### C BC #### [facility] [address] [place] [address] Dr. Salud Abraham MANUAL DIFF REQ NO Normal [facility] Comment on above: Performed By: #### C BC #### [facility] [address] [place] [address] Dr. Salud Abraham MCH (RBC) [Entitic mass] 29.9 pg Normal 25.9-34.0 [facility] Comment on above: Performed By: #### C BC #### [facility] [address] [place] [address] Dr. Salud Abraham MCHC (RBC) [Mass/Vol] 33.3 g/dL Normal 29.9-35.2 [facility] Comment on above: Performed By: #### C BC #### [facility] [address] [place] [address] Dr. Salud Abraham MCV (RBC) [Entitic vol] 90.0 fL Normal 80.0-94.0 [facility] Comment on above: Performed By: #### C BC #### [facility] [address] [place] [address] Dr. Salud Abraham MONO # 0.5 103/ul Normal 0.3-0.8 [facility] Comment on above: Performed By: #### C BC #### [facility] [address] [place] [address] Dr. Salud Abraham Monocytes/100 WBC (Bld) 8.9 % Normal 1.7-12.0 [facility] Comment on above: Performed By: #### C BC #### [facility] [address] [place] [address] Dr. Salud Abraham NEUT # 3.8 103/ul Normal 1.4-6.5 [facility] Comment on above: Performed By: #### C BC #### [facility] [address] [place] [address] Dr. Salud Abraham Neutrophils/100 WBC (Bld) 62.2 % Normal 43.0-75.0 [facility] Comment on above: Performed By: #### C BC #### [facility] [address] [place] [address] Dr. Salud Abraham Platelet mean volume (Bld) [Entitic vol] 10.6 fL Normal 9.5-13.5 [facility] Comment on above: Performed By: #### C BC #### [facility] [address] [place] [address] Dr. Salud Abraham PLT 196 103/ul Normal 150-450 [facility] Comment on above: Performed By: #### C BC #### [facility] [address] [place] [address] Dr. Salud Abraham RBC 4.98 106/ul Normal 4.70-6.10 [facility] Comment on above: Performed By: #### C BC #### [facility] [address] [place] [address] Dr. Salud Abraham WBC 6.1 103/ul Normal 4.0-11.0 [facility] Comment on above: Performed By: #### C BC #### [facility] [address] [place] [address] Dr. Salud Abraham FREE T3on 03-18-2022 FREE T3 2.91 pg/mlL Normal 2.18-3.98 [facility] Comment on above: Performed By: #### T SH, CMP, T4, FT3, LIPID #### [facility] [address] [address] [address] Salud Abraham GLYCOHEMOGLOBIN A1Con 2021 ADA RECOMMENDATION SEE BELOW Normal [facility] Comment on above: Result Comment: ADA RECOMMENDED LIMIT 4.0 - 6.0 ADA THERAPEUTIC TARGET < 7.0 ACTION SUGGESTED > 7.0 Performed By: #### A 1C #### [facility] [address] [address] [address] Salud Abraham Glucose [Mass/Vol] 111 mg/dL Normal [facility] Comment on above: Performed By: #### A 1C #### [facility] [address] [address] [address] Salud Abraham HbA1c (Bld) [Mass fraction] 5.5 % Normal 4.5-6.2 [facility] Comment on above: Performed By: #### A 1C #### [facility] [address] [place] [address] Dr. Salud Abraham LIPID PROFILEon 03-18-2022 CHOL-HDL RATIO NORM SEE BELOW Normal [facility] Comment on above: Result Comment: 3.3 - 4.4 LOW RISK 4.4 - 7.1 AVERAGE RISK 7.1 - 11.0 MODERATE RISK >11.0 HIGH RISK Performed By: #### T SH, CMP, T4, FT3, LIPID #### [facility] [address] [address] [address] Salud Abraham Cholesterol [Mass/Vol] 169 mg/dL Normal <=200 [facility] Comment on above: Performed By: #### T SH, CMP, T4, FT3, LIPID #### [facility] [address] [address] [address] Salud Abraham Cholesterol in HDL [Mass/Vol] 57 mg/dL Normal 40-60 [facility] Comment on above: Performed By: #### T SH, CMP, T4, FT3, LIPID #### [facility] [address] [address] [address] Salud Abraham Cholesterol in LDL [Mass/Vol] 92.2 mg/dL Normal [facility] Comment on above: Performed By: #### T SH, CMP, T4, FT3, LIPID #### [facility] [address] [address] [address] Salud Abraham Cholesterol.total/Ch olesterol in HDL [Mass ratio] 3.0 {ratio} Normal [facility] Comment on above: Performed By: #### T SH, CMP, T4, FT3, LIPID #### [facility] [address] [address] [address] Salud Abraham HDL NORMAL > or = 60 mg/dl - LO W CARDIOVASCULAR RISK <40 mg/dl - HIGH CARDIOVASCULAR RISK Normal [facility] Comment on above: Performed By: #### T SH, CMP, T4, FT3, LIPID #### [facility] [address] [address] [address] Salud Abraham LDL CALC NORMAL SEE BELOW Normal [facility] Comment on above: Result Comment: <100 mg/dl OPTIMAL 100 - 129 mg/dl NEAR OR ABOVE OPTIMAL 130 - 159 mg/dl BORDERLINE HIGH 160 - 189 mg/dl HIGH >190 mg/dl VERY HIGH Performed By: #### T SH, CMP, T4, FT3, LIPID #### [facility] [address] [address] [address] Salud Abraham Triglyceride [Mass/Vol] 99 mg/dL Normal <=150 [facility] Comment on above: Performed By: #### T SH, CMP, T4, FT3, LIPID #### [facility] [address] [address] [address] Salud Abraham VLDL CALC 19.8 mg/dL Normal [facility] Comment on above: Performed By: #### T SH, CMP, T4, FT3, LIPID #### [facility] [address] [address] [address] Salud Abraham PROF 14(COMP METB)on 022 Albumin [Mass/Vol] 3.8 g/dL Normal 3.4-5.0 [facility] Comment on above: Performed By: #### T SH, CMP, T4, FT3, LIPID #### [facility] [address] [address] [address] Salud Abraham Albumin/Globulin [Mass ratio] 1.4 {ratio} Normal [facility] Comment on above: Performed By: #### T SH, CMP, T4, FT3, LIPID #### [facility] [address] [address] [address] Salud Abraham ALP [Catalytic activity/Vol] 98 U/L Normal 46-116 [facility] Comment on above: Performed By: #### T SH, CMP, T4, FT3, LIPID #### [facility] [address] [address] [address] Salud Abraham ALT [Catalytic activity/Vol] 36 U/L Normal 16-63 [facility] Comment on above: Performed By: #### T SH, CMP, T4, FT3, LIPID #### [facility] [address] [place] [address] Dr. Salud Abraham Anion gap [Moles/Vol] 9.9 mmol/L Normal [facility] Comment on above: Performed By: #### T SH, CMP, T4, FT3, LIPID #### [facility] [address] [place] [address] Dr. Salud Abraham AST [Catalytic activity/Vol] 19 U/L Normal 15-37 [facility] Comment on above: Performed By: #### T SH, CMP, T4, FT3, LIPID #### [facility] [address] [place] [address] Dr. Salud Abraham Bilirubin [Mass/Vol] 0.2 mg/dL Normal 0.2-1.0 [facility] Comment on above: Performed By: #### T SH, CMP, T4, FT3, LIPID #### [facility] [address] [place] [address] Dr. Salud Abraham Calcium [Mass/Vol] 9.1 mg/dL Normal 8.5-10.1 [facility] Comment on above: Performed By: #### T SH, CMP, T4, FT3, LIPID #### [facility] [address] [place] [address] Dr. Salud Abraham Chloride [Moles/Vol] 108 mmol/L Critically high 98-107 [facility] Comment on above: Performed By: #### T SH, CMP, T4, FT3, LIPID #### [facility] [address] [place] [address] Dr. Salud Abraham CO2 [Moles/Vol] 31.0 mmol/L Normal 21.0-32.0 [facility] Comment on above: Performed By: #### T SH, CMP, T4, FT3, LIPID #### [facility] [address] [place] [address] Dr. Salud Abraham Creatinine [Mass/Vol] 0.90 mg/dL Normal 0.70-1.30 [facility] Comment on above: Performed By: #### T SH, CMP, T4, FT3, LIPID #### [facility] [address] [place] [address] Dr. Salud Abraham EGFR-AF WELSH >60 Normal >=60 [facility] Comment on above: Performed By: #### T SH, CMP, T4, FT3, LIPID #### [facility] [address] [place] [address] Dr. Salud Abraham EGFR-NON AF WELSH >60 Normal >=60 [facility] Comment on above: Performed By: #### T SH, CMP, T4, FT3, LIPID #### [facility] [address] [place] [address] Dr. Salud Abraham Globulin (S) [Mass/Vol] 2.8 g/dL Normal [facility] Comment on above: Performed By: #### T SH, CMP, T4, FT3, LIPID #### [facility] [address] [place] [address] Dr. Salud Abraham Glucose [Mass/Vol] 99 mg/dL Normal 74-106 [facility] Comment on above: Performed By: #### T SH, CMP, T4, FT3, LIPID #### [facility] [address] [place] [address] Dr. Salud Abraham Potassium [Moles/Vol] 4.9 mmol/L Normal 3.5-5.1 [facility] Comment on above: Performed By: #### T SH, CMP, T4, FT3, LIPID #### [facility] [address] [place] [address] Dr. Salud Abraham Protein [Mass/Vol] 6.6 g/dL Normal 6.4-8.2 [facility] Comment on above: Performed By: #### T SH, CMP, T4, FT3, LIPID #### [facility] [address] [place] [address] Dr. Salud Abraham Sodium [Moles/Vol] 144 mmol/L Normal 136-145 [facility] Comment on above: Performed By: #### T SH, CMP, T4, FT3, LIPID #### [facility] [address] [place] [address] Dr. Salud Abraham Urea nitrogen [Mass/Vol] 14.0 mg/dL Normal 7.0-18.0 [facility] Comment on above: Performed By: #### T SH, CMP, T4, FT3, LIPID #### [facility] [address] [place] [address] Dr. Salud Abraham Urea nitrogen/Creatinine [Mass ratio] 15.6 mg/mg Normal [facility] Comment on above: Performed By: #### T SH, CMP, T4, FT3, LIPID #### [facility] [address] [place] [address] Dr. Salud Abraham T4on 03-18-2022 T4 [Mass/Vol] 5.50 ug/dL Normal 4.50-12.10 [facility] Comment on above: Performed By: #### T SH, CMP, T4, FT3, LIPID #### [facility] [address] [place] [address] Dr. Salud Abraham TSHon 03-18-2022 TSH 5.089 uIU/mL Critically high 0.358-3.740 [facility] Comment on above: Performed By: #### T SH, CMP, T4, FT3, LIPID #### [facility] [address] [place] [address] Dr. Salud Abraham Reminderson 03-26-2021 Reminders - From: Alana Renae LPN To: N - Clinical; Sent: 03/26/2021 08:12:14 EST Show up: 02/04/2026 08:00:00 EDT Subject: colonoscopy recall Due Date/Time: 03/07/2026 08:00:00 EST Reminder/Recall Patient is due for colonoscopy 03/07/2026 due to history of tubular adenoma. Normal [facility] Ambulatory Clinical Summaryo n 03-23-2021 Ambulatory Clinical Summary {[id number] }CD:[id number] Normal [facility] General Surgery Office/Clini c Noteon 03-23-2021 General [...] neoplasm of female genital organ: Mother. Normal [facility] Comment on above: Result Comment: Elec tronically Signed By: LYNDA HASSAN, Carlos Rivera\Date and Time Signed: 03/23/21 15:53 EST Pathology Noteon 03-12-2021 Pathology Note [id number] :127 Normal [facility] Outside Colonoscopyon 2020 Outside Colonoscopy [id number]: 127 Normal [facility] Provider [facility] Provider Letter [facility] February 20, 2021 Vick Farris, [facility] [place] [address] Re: DARVIN LIEBERMAN Date of : 1965 Thank you for your referral of Darvin Lieberman who was seen on consultation on February 13, 2021, for positive cologuard. A colonoscopy is planned for further evaluation. I have enclosed my consultation note for your review. I will be happy to follow Darvin. Sincerely, Carlos Cheney MD General Surgery [facility] Consent for Procedure/Surger yon 02-15-2021 Consent for Procedure/Surgery [id number]: 127 [facility] Ambulatory Clinical Summaryo n 02-13-2021 Ambulatory Clinical Summary {[id number] }CD:[id number] [facility] Physician Referralon 021 Physician Referral [id number]: 127 [facility] Encounters Encounter Date Encounter Type Care Provider Facility Start: 08-14-2022 End: 08-15-[address] VICK FARRIS . Facility:[facility] Start: 04-25-[address] VICK FARRIS . Facili ty:[facility] Start: 03-23-2022 Encounter for genera l adult medical examination without abnormal findings DR VICK FARRIS . [facility] Start: 03-21-2022 End: 03-21-[address] VICK FARRIS . Facility:[facility] Start: 03-18-2022 End: 03-19-[address] VICK FARRIS . Facility:[facility] Start: 03-18-2022 End: 03-19-2022 Encounter for general adult medical examination without abnormal findings DR VICK FARRIS . Facility:[facility] Procedures Date Procedure Procedure Detail Performing Clinician Start: 03-18-[address] KINJAL FARRIS . Comment on above: Performed By: #### [facility] #### [facility] [address] [address] [address] Salud Abraham Payers Date Payer Category Payer Unknown [id number] 2.16.84 [id number] 1965 Unknown [id number] 2.16.84 [id number] 1965 Unknown [id number] 2.16.84 [id number] 1965 Unknown [id number] 2.16.84 [id number] 1961 Self-pay 1961 Unknown [id number] Clinical Note 08-14-2022 Note Date & Type [...] authenticated by: ELIAS AGUIRRE Date: 2022-08-14 14:12 [facility] Clinical Note 02-13-2021 Note Date & Type [...] malignant neoplasm of female genital organ: Mother. [facility] Comment on above: Result Comment: Elec tronically [...] section and content) DATE CREATED AUTHOR 07/07/2021 [facility] DATE CREATED AUTHOR AUTHOR'S JESSICA ATJERMAINE [...] BE BASED ON THE PRIMARY CLINICAL RECORDS. [facility] [employer] [facility]. provides no warranty or guarantee of the accuracy or completeness of information in this document.
== END 2023-07-03 15:16 | disposition home or self-care (01) ==
LOC: EC 15:15
PROVIDERS: PCP Family Medicine; Visit Provider Physician Assistant
DX: M79.671 Pain in right foot (principal); Z98.890 Other specified postprocedural states
CPT/HCPCS: 73630

== ENCOUNTER 2024-05-07 11:10 | Outpatient (OUT) | payer OTHER, SELFPAY ==
--- OUTSIDE RECORDS SUMMARY | 2024-05-07 11:33 | XMS_ITS | CCD ---
Author Organization [facility] Care Team Providers Care Float Nurse Name Role Phone KALEIGH Heard, DR HICKMAN Primary Care Unavailable KAMLA SORIANO Attending Unavailable KAMLA SORIANO Consulting Unavailable KAMLA SORIANO Admitting Unavailable ELIAS [...] SCREENon 12-0 OCCULT BLOOD Negative Normal NEGATIVE [facility] Comment on above: Performed By: #### O BSCRN #### [facility] [address] [address] [address] Salud Abraham CBC AUTO DIFFon 03-18-2022 BASO # 0.1 103/ul Normal 0.0-0.1 [facility] Comment on above: Performed By: #### C BC #### [facility] [address] [place] [address] Dr. Salud Abraham Basophils/100 WBC (Bld) 0.8 % Normal 0.2-2.0 [facility] Comment on above: Performed By: #### C BC #### [facility] [address] [place] [address] Dr. Salud Abraham EO # 0.2 103/ul Normal 0.0-0.7 [facility] Comment on above: Performed By: #### C BC #### [facility] [address] [place] [address] Dr. Salud Abraham Eosinophils/100 WBC (Bld) 3.8 % Normal 0.9-7.0 [facility] Comment on above: Performed By: #### C BC #### [facility] [address] [place] [address] Dr. Salud Abraham Erythrocyte distribution width (RBC) [Ratio] 12.7 % Normal 11.0-15.0 [facility] Comment on above: Performed By: #### C BC #### [facility] [address] [place] [address] Dr. Salud Abraham Hematocrit (Bld) [Volume fraction] 44.8 % Normal 42.0-54.0 [facility] Comment on above: Performed By: #### C BC #### [facility] [address] [place] [address] Dr. Salud Abraham Hemoglobin (Bld) [Mass/Vol] 14.9 g/dL Normal 14.0-18.0 [facility] Comment on above: Performed By: #### C BC #### [facility] [address] [place] [address] Dr. Salud Abraham IG # 0.02 10e3/ul Normal 0.00-0.03 [facility] Comment on above: Performed By: #### C BC #### [facility] [address] [place] [address] Dr. Salud Abraham IG % 0.3 % Normal 0.0-0.5 [facility] Comment on above: Performed By: #### C BC #### [facility] [address] [place] [address] Dr. Salud Abraham LYMPH # 1.5 103/ul Normal 1.2-3.8 [facility] Comment on above: Performed By: #### C BC #### [facility] [address] [place] [address] Dr. Salud Abraham Lymphocytes/100 WBC (Bld) 24.0 % Normal 20.5-60.0 [facility] Comment on above: Performed By: #### C BC #### [facility] [address] [place] [address] Dr. Salud Abraham MANUAL DIFF REQ NO Normal [facility] Comment on above: Performed By: #### C BC #### [facility] [address] [place] [address] Dr. Salud Abraham MCH (RBC) [Entitic mass] 29.9 pg Normal 25.9-34.0 [facility] Comment on above: Performed By: #### C BC #### [facility] [address] [place] [address] Dr. Salud Abraham MCHC (RBC) [Mass/Vol] 33.3 g/dL Normal 29.9-35.2 [facility] Comment on above: Performed By: #### C BC #### [facility] [address] [place] [address] Dr. Salud Abraham MCV (RBC) [Entitic vol] 90.0 fL Normal 80.0-94.0 [facility] Comment on above: Performed By: #### C BC #### [facility] [address] [place] [address] Dr. Salud Abraham MONO # 0.5 103/ul Normal 0.3-0.8 [facility] Comment on above: Performed By: #### C BC #### [facility] [address] [place] [address] Dr. Salud Abraham Monocytes/100 WBC (Bld) 8.9 % Normal 1.7-12.0 [facility] Comment on above: Performed By: #### C BC #### [facility] [address] [place] [address] Dr. Salud Abraham NEUT # 3.8 103/ul Normal 1.4-6.5 [facility] Comment on above: Performed By: #### C BC #### [facility] [address] [place] [address] Dr. Salud Abraham Neutrophils/100 WBC (Bld) 62.2 % Normal 43.0-75.0 [facility] Comment on above: Performed By: #### C BC #### [facility] [address] [place] [address] Dr. Salud Abraham Platelet mean volume (Bld) [Entitic vol] 10.6 fL Normal 9.5-13.5 [facility] Comment on above: Performed By: #### C BC #### [facility] [address] [place] [address] Dr. Salud Abraham PLT 196 103/ul Normal 150-450 [facility] Comment on above: Performed By: #### C BC #### [facility] [address] [place] [address] Dr. Salud Abraham RBC 4.98 106/ul Normal 4.70-6.10 [facility] Comment on above: Performed By: #### C BC #### [facility] [address] [place] [address] Dr. Salud Abraham WBC 6.1 103/ul Normal 4.0-11.0 [facility] Comment on above: Performed By: #### C BC #### [facility] [address] [place] [address] Dr. Salud Abraham FREE T3on 03-18-2022 FREE T3 2.91 pg/mlL Normal 2.18-3.98 [facility] Comment on above: Performed By: #### T SH, CMP, T4, FT3, LIPID #### [facility] [address] [place] [address] Dr. Salud Abraham GLYCOHEMOGLOBIN A1Con 2021 ADA RECOMMENDATION SEE BELOW Normal [facility] Comment on above: Result Comment: ADA RECOMMENDED LIMIT 4.0 - 6.0 ADA THERAPEUTIC TARGET < 7.0 ACTION SUGGESTED > 7.0 Performed By: #### A 1C #### [facility] [address] [place] [address] Dr. Salud Abraham Glucose [Mass/Vol] 111 mg/dL Normal [facility] Comment on above: Performed By: #### A 1C #### [facility] [address] [place] [address] Dr. Salud Abraham HbA1c (Bld) [Mass fraction] 5.5 % Normal 4.5-6.2 [facility] Comment on above: Performed By: #### A 1C #### [facility] [address] [place] [address] Dr. Salud Abraham LIPID PROFILEon 03-18-2022 CHOL-HDL RATIO NORM SEE BELOW Normal [facility] Comment on above: Result Comment: 3.3 - 4.4 LOW RISK 4.4 - 7.1 AVERAGE RISK 7.1 - 11.0 MODERATE RISK >11.0 HIGH RISK Performed By: #### T SH, CMP, T4, FT3, LIPID #### [facility] [address] [place] [address] Dr. Salud Abraham Cholesterol [Mass/Vol] 169 mg/dL Normal <=200 [facility] Comment on above: Performed By: #### T SH, CMP, T4, FT3, LIPID #### [facility] [address] [place] [address] Dr. Salud Abraham Cholesterol in HDL [Mass/Vol] 57 mg/dL Normal 40-60 [facility] Comment on above: Performed By: #### T SH, CMP, T4, FT3, LIPID #### [facility] [address] [place] [address] Dr. Salud Abraham Cholesterol in LDL [Mass/Vol] 92.2 mg/dL Normal [facility] Comment on above: Performed By: #### T SH, CMP, T4, FT3, LIPID #### [facility] [address] [address] [address] Salud Abraham Cholesterol.total/Ch olesterol in HDL [Mass ratio] 3.0 {ratio} Normal [facility] Comment on above: Performed By: #### T SH, CMP, T4, FT3, LIPID #### [facility] [address] [address] [address] Salud Abraham HDL NORMAL > or = 60 mg/dl - LO W CARDIOVASCULAR RISK <40 mg/dl - HIGH CARDIOVASCULAR RISK Normal [facility] Comment on above: Performed By: #### T SH, CMP, T4, FT3, LIPID #### [facility] [address] [address] [address] Salud Abraham LDL CALC NORMAL SEE BELOW Normal [facility] Comment on above: Result Comment: <100 mg/dl OPTIMAL 100 - 129 mg/dl NEAR OR ABOVE OPTIMAL 130 - 159 mg/dl BORDERLINE HIGH 160 - 189 mg/dl HIGH >190 mg/dl VERY HIGH Performed By: #### T SH, CMP, T4, FT3, LIPID #### [facility] [address] [address] [address] Salud Abraham Triglyceride [Mass/Vol] 99 mg/dL Normal <=150 [facility] Comment on above: Performed By: #### T SH, CMP, T4, FT3, LIPID #### [facility] [address] [address] [address] Salud Abraham VLDL CALC 19.8 mg/dL Normal [facility] Comment on above: Performed By: #### T SH, CMP, T4, FT3, LIPID #### [facility] [address] [address] [address] Salud Abraham PROF 14(COMP METB)on 022 Albumin [Mass/Vol] 3.8 g/dL Normal 3.4-5.0 [facility] Comment on above: Performed By: #### T SH, CMP, T4, FT3, LIPID #### [facility] [address] [address] [address] Salud Abraham Albumin/Globulin [Mass ratio] 1.4 {ratio} Normal [facility] Comment on above: Performed By: #### T SH, CMP, T4, FT3, LIPID #### [facility] [address] [place] [address] Dr. Salud Abraham ALP [Catalytic activity/Vol] 98 U/L Normal 46-116 [facility] Comment on above: Performed By: #### T SH, CMP, T4, FT3, LIPID #### [facility] [address] [place] [address] Dr. Salud Abraham ALT [Catalytic activity/Vol] 36 U/L Normal 16-63 [facility] Comment on above: Performed By: #### T SH, CMP, T4, FT3, LIPID #### [facility] [address] [place] [address] Dr. Salud Abraham Anion gap [Moles/Vol] 9.9 mmol/L Normal [facility] Comment on above: Performed By: #### T SH, CMP, T4, FT3, LIPID #### [facility] [address] [place] [address] Dr. Salud Abraham AST [Catalytic activity/Vol] 19 U/L Normal 15-37 [facility] Comment on above: Performed By: #### T SH, CMP, T4, FT3, LIPID #### [facility] [address] [place] [address] Dr. Salud Abraham Bilirubin [Mass/Vol] 0.2 mg/dL Normal 0.2-1.0 [facility] Comment on above: Performed By: #### T SH, CMP, T4, FT3, LIPID #### [facility] [address] [place] [address] Dr. Salud Abraham Calcium [Mass/Vol] 9.1 mg/dL Normal 8.5-10.1 [facility] Comment on above: Performed By: #### T SH, CMP, T4, FT3, LIPID #### [facility] [address] [place] [address] Dr. Salud Abraham Chloride [Moles/Vol] 108 mmol/L Critically high 98-107 [facility] Comment on above: Performed By: #### T SH, CMP, T4, FT3, LIPID #### [facility] [address] [place] [address] Dr. Salud Abraham CO2 [Moles/Vol] 31.0 mmol/L Normal 21.0-32.0 [facility] Comment on above: Performed By: #### T SH, CMP, T4, FT3, LIPID #### [facility] [address] [place] [address] Dr. Salud Abraham Creatinine [Mass/Vol] 0.90 mg/dL Normal 0.70-1.30 [facility] Comment on above: Performed By: #### T SH, CMP, T4, FT3, LIPID #### [facility] [address] [place] [address] Dr. Salud Abraham EGFR-AF UGANDAN >60 Normal >=60 [facility] Comment on above: Performed By: #### T SH, CMP, T4, FT3, LIPID #### [facility] [address] [place] [address] Dr. Salud Abraham EGFR-NON AF UGANDAN >60 Normal >=60 [facility] Comment on above: Performed By: #### T SH, CMP, T4, FT3, LIPID #### [facility] [address] [place] [address] Dr. Salud Abraham Globulin (S) [Mass/Vol] 2.8 g/dL Normal [facility] Comment on above: Performed By: #### T SH, CMP, T4, FT3, LIPID #### [facility] [address] [place] [address] Dr. Salud Abraham Glucose [Mass/Vol] 99 mg/dL Normal 74-106 [facility] Comment on above: Performed By: #### T SH, CMP, T4, FT3, LIPID #### [facility] [address] [place] [address] Dr. Salud Abraham Potassium [Moles/Vol] 4.9 mmol/L Normal 3.5-5.1 [facility] Comment on above: Performed By: #### T SH, CMP, T4, FT3, LIPID #### [facility] [address] [place] [address] Dr. Salud Abraham Protein [Mass/Vol] 6.6 g/dL Normal 6.4-8.2 [facility] Comment on above: Performed By: #### T SH, CMP, T4, FT3, LIPID #### [facility] [address] [place] [address] Dr. Salud Abraham Sodium [Moles/Vol] 144 mmol/L Normal 136-145 [facility] Comment on above: Performed By: #### T SH, CMP, T4, FT3, LIPID #### [facility] [address] [place] [address] Dr. Salud Abraham Urea nitrogen [Mass/Vol] 14.0 mg/dL Normal 7.0-18.0 [facility] Comment on above: Performed By: #### T SH, CMP, T4, FT3, LIPID #### [facility] [address] [place] [address] Dr. Salud Abraham Urea nitrogen/Creatinine [Mass ratio] 15.6 mg/mg Normal [facility] Comment on above: Performed By: #### T SH, CMP, T4, FT3, LIPID #### [facility] [address] [place] [address] Dr. Salud Abraham T4on 03-18-2022 T4 [Mass/Vol] 5.50 ug/dL Normal 4.50-12.10 [facility] Comment on above: Performed By: #### T SH, CMP, T4, FT3, LIPID #### [facility] [address] [place] [address] Dr. Salud Abraham TSHon 03-18-2022 TSH 5.089 uIU/mL Critically high 0.358-3.740 [facility] Comment on above: Performed By: #### T SH, CMP, T4, FT3, LIPID #### [facility] [address] [place] [address] Dr. Salud Abraham Reminderson 03-26-2021 Reminders - From: Alana Renae LPN To: GSN - Clinical; Sent: 03/26/2021 08:12:14 EST Show up: 02/04/2026 08:00:00 EDT Subject: colonoscopy recall Due Date/Time: 03/07/2026 08:00:00 EST Reminder/Recall Patient is due for colonoscopy 03/07/2026 due to history of tubular adenoma. Normal [facility] Ambulatory Clinical Summaryo n 03-23-2021 Ambulatory Clinical Summary {[id number] }CD:[id number] Normal [facility] General Surgery Office/Clini c Noteon 03-23-2021 General [...] neoplasm of female genital organ: Mother. Normal [facility] Comment on above: Result Comment: Elec tronically Signed By: LYNDA HASSAN, Carlos Caballero\aries\Date and Time Signed: 03/23/21 15:53 EST Pathology Noteon 03-12-2021 Pathology Note [id number] :127 Normal [facility] Outside Colonoscopyon 2020 Outside Colonoscopy [id number]#[id number]: 127 Normal [facility] February 20, 2021 Vick Farris, [facility] [place] [address] Re: DARVIN LIEBERMAN Date of : 1965 Thank you for your referral of Darvin Lieberman who was seen on consultation on February 13, 2021, for positive cologuard. A colonoscopy is planned for further evaluation. I have enclosed my consultation note for your review. I will be happy to follow Darvin. Sincerely, Carlos Cheney MD General Surgery [facility] Consent for Procedure/Surger yon 02-15-2021 Consent for Procedure/Surgery [id number]: 127 [facility] Ambulatory Clinical Summaryo n 02-13-2021 Ambulatory Clinical Summary {[id number] }CD:[id number] [facility] Physician Referralon 021 Physician Referral [id number]: 127 [facility] Encounters Encounter Date Encounter Type Care Provider Facility Start: 08-14-2022 End: 08-15-[address] VICK FARRIS . Facility:[facility] Start: 04-25-[address] VICK FARRIS . Facili ty:[facility] Start: 03-23-2022 Encounter for genera l adult medical examination without abnormal findings DR VICK FARRIS . [facility] Start: 03-21-2022 End: 03-21-[address] VICK FARRIS . Facility:[facility] Start: 03-18-2022 End: 03-19-[address] VICK FARRIS . Facility:[facility] Start: 03-18-2022 End: 03-19-2022 Encounter for general adult medical examination without abnormal findings DR VICK FARRIS . Facility:[facility] Procedures Date Procedure Procedure Detail Performing Clinician Start: 03-18-[address] KINJAL FARRIS . Comment on above: Performed By: #### P [facility] #### [facility] [address] [place] [address] Dr. Salud Abraham Payers Date Payer Category Payer Unknown [id number] [id number] [id number] 1965 Unknown [id number] [id number] [id number] 1965 Unknown [id number] [id number] [id number] 1965 Unknown [id number] [id number] 1961 Self-pay 1961 Unknown [id number] Clinical Note 08-14-2022 Note Date & Type [...] authenticated by: ELIAS AGUIRRE Date: 2022-08-14 14:12 [facility] Clinical Note 02-13-2021 Note Date & Type [...] malignant neoplasm of female genital organ: Mother. [facility] Comment on above: Result Comment: Elec tronically [...] section and content) DATE CREATED AUTHOR 07/07/2021 [facility] DATE CREATED AUTHOR AUTHOR'S ORGANIZ ATION 08/23/2022 [facility] FOR RECORDS PERTAINING TO PATIENTS WHO ARE [...] BE BASED ON THE PRIMARY CLINICAL RECORDS. [facility] [employer] [facility]. provides no warranty or guarantee of the accuracy or completeness of information in this document.
[2024-05-07 12:01] LABS: Basophils Percent Auto 0.7 % (0.2-2.0); Eosinophils Absolute Auto 0.2 10^3/uL (0.0-0.7); Eosinophils Percent Auto 4.1 % (0.9-7.0); Hematocrit 42.9 % (42.0-54.0); Hemoglobin 14.4 g/dL (14.0-18.0); Immature Granulocytes Abs Auto 0.01 10^3/uL (0.00-0.03); Immature Granulocytes Pct Auto 0.2 % (0.0-0.5); Lymphocytes Absolute Auto 1.4 10^3/uL (1.2-3.8); Lymphocytes Percent Auto 24.2 % (20.5-60.0); Mean Corpuscular HGB Conc 33.6 g/dL (29.9-35.2); Mean Corpuscular Hemoglobin 30.1 pg (25.9-34.0); Mean Corpuscular Volume 89.7 fL (80.0-94.0); Monocytes Absolute Auto 0.4 10^3/uL (0.3-0.8); Monocytes Percent Auto 7.4 % (1.7-12.0); Neutrophils Absolute Auto 3.6 10^3/uL (1.4-6.5); Neutrophils Percent Auto 63.4 % (43.0-75.0); Platelet Count 238 10^3/uL (150-450); Red Blood Count 4.78 10^6/uL (4.70-6.10); Red Cell Distribution Width 12.7 % (11.0-15.0); White Blood Count 5.7 10^3/uL (4.0-11.0)
[2024-05-07 12:21] LABS: Estimated Average Glucose 108 mg/dL; Glycohemoglobin A1C 5.4 % (4.5-6.2)
[2024-05-07 12:33] LABS: Alanine Aminotransferase 41 U/L (16-63); Albumin Globulin Ratio 1.4; Albumin Level 3.8 g/dL (3.4-5.0); Alkaline Phosphatase 105 U/L (46-116); Anion Gap 11.5; Aspartate Amino Transferase 26 U/L (15-37); BUN Creatinine Ratio 17.2; Bilirubin Total 0.5 mg/dL (0.2-1.0); Calcium 8.7 mg/dL (8.5-10.1); Carbon Dioxide 29.7 mmol/L (21.0-32.0); Chloride 110 mmol/L (98-107); Chol HDL Ratio 2.4; Cholesterol 164 mg/dL (<=200); Estimated GFR (African America >60 (>=60 mL/min/1.73m^2); Estimated GFR (Non-African Ame >60 (>=60 mL/min/1.73m^2); Free T3 2.63 pg/mL (2.18-3.98); Globulin 2.7 g/dL; Glucose 99 mg/dL (74-106); HDL Cholesterol 68 mg/dL (40-60); Potassium 4.2 mmol/L (3.5-5.1); Sodium 147 mmol/L (136-145); Thyroid Stimulating Hormone 2.031 uIU/mL (0.358-3.740); Total Protein 6.5 g/dL (6.4-8.2); Triglycerides 54 mg/dL (<=150); VLDL CHOLESTEROL 10.8 mg/dL
[2024-05-08 04:15] LABS: PSA, Free 0.25 ng/mL; Prostate Specific Ag 0.9 ng/mL (0.0-4.0)
== END 2024-05-07 11:11 | disposition home or self-care (01) ==
LOC: LAB 11:11
PROVIDERS: PCP Family Medicine; Visit Provider Family Medicine
DX: Z00.00 Encounter for general adult medical examination without abnormal findings (principal); R53.83 Other fatigue
CPT/HCPCS: 36415; 80053; 80061; 83036; 84153; 84154; 84436; 84443; 84481; 85025